=== PATIENT | female | born 1940 | race Caucasian/White ===

== ENCOUNTER → 2018-09-17 | Outpatient (CLI) | payer OTHER ==
[~2018-09-17] VITALS: Ht 162.6 cm; Wt 77.1 kg
[~2018-09-17] MED LIST: CRESTOR20 MG PO; FLONASE 0.05%50 MCG NASAL; ZOLOFT25 MG PO
--- NOTE | ~2018-09-17 | P ---
[facility] [place] [address] PROCEDURE REPORT Name: WESJosh AISSATOU Room #: REG [facility]#: [id number] Admission: 09/17/18 ������������������ Attend Phys: Maximilian Tinsley MD Discharge: ������������������ Date of : 44 Report #: [id number] THIS REPORT FOR: //name// CC: Estela Dotson MD DATE OF SERVICE: 09/17/2018 BRIEF HISTORY: The patient is a 77-year-old woman with a history of reflux disease and intermittent solid food dysphagia. She also has a history of both non-Hodgkin's lymphoma and breast cancer, previously treated. In addition, she recently had a CT scan of the chest at which revealed a "gastric cystic lesion." PREOPERATIVE DIAGNOSES: Reflux disease, dysphagia and abnormal CT of the stomach. POSTOPERATIVE DIAGNOSES: 1. Diffuse gastritis, no evidence of intraluminal mass lesions. 2. Small hiatus hernia. 3. Grade C erosive esophagitis. 4. Mild Schatzki ring. MEDICATIONS: Deep sedation with propofol per anesthesia. SPECIMEN: Biopsies of gastritis. ESTIMATED BLOOD LOSS: 3 mL. PROCEDURE: EGD with biopsy and Richards dilation of esophagus. FINDINGS: Prior to propofol sedation, the procedures of upper endoscopy and dilation were discussed with the patient as well as potential risks and its complications. She indicates she understands and desires to proceed. DESCRIPTION OF PROCEDURE: With the patient in left lateral decubitus position, the Olympus videoendoscope was inserted in the cervical esophagus under direct vision without difficulty. Examination of this organ through its entire length revealed normal esophageal mucosa throughout the esophagus down the squamocolumnar junction. However, in the squamocolumnar junction, erosions were seen along the squamocolumnar junction. No ulcers were seen. There was no evidence of mass lesion. Intermittently, a mild ring was seen. Intermittently, a 1-2 cm sliding hiatus hernia was seen. There was no evidence of Jara mucosa. The scope was advanced in the stomach, was examined on end view as well [facility] [address] [place] [address] PROCEDURE REPORT Name: Josh HARVEY Room #: REG Shanell Corona.#: [id number] Admission: 09/17/18 ������������������ Attend Phys: Maximilian Tinsley MD Discharge: ������������������ Date of : 44 Report #: [id number] as retroflexed views. There was a pattern of diffuse gastritis with linear erythema in the antrum. No ulcers or erosions were seen. The proximal stomach was examined on end view as well as retroflexed views. The mucosa was intact and other than erythema was unremarkable. There was no evidence of intraluminal mass lesions anywhere in the stomach. No mass lesions were seen in the cardia. The pylorus, duodenal bulb and postbulbar duodenal sweep were inspected and noted to be unremarkable. At that point, the scope was slowly withdrawn and careful circumferential views were obtained. Biopsies were obtained of the gastric mucosa. Scope was withdrawn. The patient tolerated the procedure well. Following procedure, the patient was dilated with passage of 52-Nepali Richards dilator. CONDITION OF THE PATIENT UPON DISCHARGE: Following procedure, the patient was drowsy and prepared for colonoscopy. INSTRUCTIONS TO THE PATIENT AND FAMILY AT THE TIME OF DISCHARGE: We will follow up on pathology and make further recommendations as needed. She does have esophagitis. She reports medicines in the past are not helpful, specifically omeprazole. We will have her try pantoprazole 40 mg twice daily. She is to return for dilation on an as needed basis. As for the abnormal CT, I do not have that report, but I do have a note that she had a cystic gastric mass. None was seen endoscopically today. She is to follow up with Dr. Terrie Dotson for further evaluation as needed for this gastric lesion. It may be extraluminal. ��������������������������������������������� ���������������������������������������� By: ��������������������������������������������� 0908 37 Maximilian Tinsley MD /nt
--- NOTE | ~2018-09-17 | P ---
[facility] [place] [address] PROCEDURE REPORT Name: WESJosh AISSATOU Room #: REG [facility]#: [id number] Admission: 09/17/18 ������������������ Attend Phys: Maximilian Tinsley MD Discharge: ������������������ Date of : 44 Report #: [id number] THIS REPORT FOR: //name// CC: Estela Dotson MD DATE OF SERVICE: 09/17/2018 BRIEF HISTORY: The patient is a 77-year-old woman with personal history of colon polyps. Also, her father had colon cancer at age 52. She has also had breast cancer, non-Hodgkin's lymphoma. PREOPERATIVE DIAGNOSES: High-risk screening due to family history of colon cancer and personal history of polyps. POSTOPERATIVE DIAGNOSES: 1. Mild sigmoid diverticulosis coli. 2. Small to moderate internal hemorrhoids. MEDICATIONS: Deep sedation with propofol per anesthesia. SPECIMEN: None. ESTIMATED BLOOD LOSS: None. PROCEDURE: Colonoscopy to cecum and terminal ileum. FINDINGS: Prior to propofol sedation, procedure of colonoscopy discussed with the patient as well as potential risks and its complications. She indicates she understands and desires to proceed. DESCRIPTION OF PROCEDURE: With the patient in left lateral decubitus position, digital examination was completed, which revealed no abnormalities. Subsequently, the Olympus videocolonoscope was introduced in the rectum and advanced under direct vision to the cecum. Done with minimal difficulty. The cecum was identified by the ileocecal valve and the appendiceal orifice. I was able to visualize the distal segment of terminal ileum, which was inspected and noted to be unremarkable. At that point, the scope was slowly withdrawn and careful circumferential views obtained including retroflexing the scope in the ascending colon. Upon slow withdrawal of the scope, the prep was excellent. Mucosa was within normal limits, normal vascular pattern, normal light reflex. As we withdrew the scope, no neoplastic lesions were seen. She had normal colonic mucosa throughout the entire colon. The scope was further withdrawn and in the sigmoid colon, there was noted to be mild sigmoid diverticular disease [address] [address] PROCEDURE REPORT Name: Josh HARVEY Room #: REG [facility] Chloe.#: [id number] Admission: 09/17/18 ������������������ Attend Phys: Maximilian Tinsley MD Discharge: ������������������ Date of : 44 Report #: [id number] without endoscopic evidence of diverticulitis. Scope was withdrawn in the rectum and no abnormalities were seen. Upon retroflexion, internal hemorrhoids were seen. Scope was withdrawn. The patient tolerated the procedure well. CONDITION OF THE PATIENT UPON DISCHARGE: Following procedure, the patient drowsy, arousable and conversant and will be discharged to home when fully ambulatory. INSTRUCTIONS TO THE PATIENT AND FAMILY AT THE TIME OF DISCHARGE: No neoplastic lesions were seen. Father had colon cancer at age 52. She has had a history of colon polyps. We will have her return in five years for followup colon exam. Last colonoscopy was approximately five years ago. Withdrawal time from the cecum was 11 minutes 43 seconds. ��������������������������������������������� ���������������������������������������� By: ��������������������������������������������� 0931 2045 Maximilian Tinsley MD /nt
--- NOTE | 2018-09-18 17:06 | PATH ---
[facility] [address] [place] [address] PATHOLOGY RPT PROCEDURE Name: WESJosh LIUAISSATOU Room #: REG CARIN Hester#: [id number] ������������������ Admission: 09/17/18 ������������������ Date of : 44 Discharge: Report #: [id number] Path Case #: [id number] [facility] Accession Number: [id number] . 01 Material submitted: . stomach - BX GASTRITIS R/O H PYLORI . 01 Clinical history: . Pre-OP DX: Dysphagia, family HX colon cancer Post-OP DX: Esophagitis, esophageal ring, hiatal hernia, gastritis, dysphagia, diverticulosis, hemorrhoid . 02 Diagnosis: Gastric mucosa, gastritis R/O H. pylori, endoscopic biopsy: - Mild reactive gastropathy. - Negative for intestinal metaplasia or atrophy. - Negative for Helicobacter pylori (properly controlled immunohistochemical stain performed). (IUV:santos; 09/18/2018) QMS/09/18/2018 . 02 Electronically signed: . Angely Jonas MD, Pathologist NPI- [id number] . 01 Gross description: . Received in formalin labeled "Josh Mosqueda, BX gastritis, rule out H. pylori," are 5 segments of vila soft tissue measuring 1.0 x 0.8 x 0.2 cm in aggregate dimensions and ranging from 0.3 to 0.5 cm in maximum dimension. The specimen is submitted entirely in cassette A1. (TSD; 09/17/2018) TOB/TOB . 02 Pathologist provided ICD-10: K31.9 . 02 CPT . 595878, G59455 Specimen Comment: A courtesy copy of this report has been sent to Specimen Comment: [phone], . Specimen Comment: Report sent to Performed at: [address], [place], [place] [id number] MD Roman Chacon MD Phone: [phone] Performed at: 02 [facility] [address] [place] [address] PATHOLOGY RPT PROCEDURE Name: Josh MOSQUEDA Room #: REG CLShanell Hester#: [id number] ������������������ Admission: 09/17/18 ������������������ Date of : 44 Discharge: Report #: [id number] Path Case #: [id number] [address] [place] [address] [id number] MD Angely Jonas MD Phone: [phone]
== END | disposition home or self-care (01) ==
LOC: GI 07:02
DX: Z12.11 Encounter for screening for malignant neoplasm of colon (principal); Z86.010 Personal history of colon polyps; Z80.0 Family history of malignant neoplasm of digestive organs; K57.30 Diverticulosis of large intestine without perforation or abscess without bleeding; K64.8 Other hemorrhoids; K31.9 Disease of stomach and duodenum, unspecified; K22.10 Ulcer of esophagus without bleeding; K22.2 Esophageal obstruction; K44.9 Diaphragmatic hernia without obstruction or gangrene; K21.9 Gastro-esophageal reflux disease without esophagitis; F32.9 Major depressive disorder, single episode, unspecified; M19.90 Unspecified osteoarthritis, unspecified site; E78.5 Hyperlipidemia, unspecified; Z85.72 Personal history of non-Hodgkin lymphomas; Z85.3 Personal history of malignant neoplasm of breast; Z87.442 Personal history of urinary calculi; Z98.41 Cataract extraction status, right eye; Z98.42 Cataract extraction status, left eye; Z98.890 Other specified postprocedural states; Z79.899 Other long term (current) drug therapy; Z88.8 Allergy status to other drugs, medicaments and biological substances
CPT/HCPCS: 43239; 43450; G0105; 62110; 62900